=== PATIENT | female | born 1935 | race Caucasian/White ===

== ENCOUNTER → 2016-10-20 | Outpatient (CLI) | payer MEDICARE, BC | LOC: MC.RAD 12:56 | DX: Z12.31 Encounter for screening mammogram for malignant neoplasm of breast (principal); D24.2 Benign neoplasm of left breast; D24.1 Benign neoplasm of right breast; Z85.3 Personal history of malignant neoplasm of breast ==

== ENCOUNTER → 2017-10-21 | Outpatient (CLI) | payer MEDICARE, BC | LOC: MC.RAD 12:55 | DX: Z12.31 Encounter for screening mammogram for malignant neoplasm of breast (principal); Z85.3 Personal history of malignant neoplasm of breast; Z98.890 Other specified postprocedural states ==

== ENCOUNTER → 2018-12-01 | Outpatient (CLI) | payer MEDICARE, BC | LOC: MC.RAD 13:45 | DX: Z12.31 Encounter for screening mammogram for malignant neoplasm of breast (principal); C50.512 Malignant neoplasm of lower-outer quadrant of left female breast; Z98.890 Other specified postprocedural states ==

== ENCOUNTER → 2019-12-14 | Outpatient (CLI) | payer MEDICARE, BC | LOC: MC.RAD 12-03 08:30 | DX: Z12.31 Encounter for screening mammogram for malignant neoplasm of breast (principal); C50.512 Malignant neoplasm of lower-outer quadrant of left female breast; Z90.13 Acquired absence of bilateral breasts and nipples ==

== ENCOUNTER → 2021-01-02 | Outpatient (CLI) | payer MEDICARE, BC ==
[~2021-01-02] MED LIST: EUTHYROX88 MCG PO; LIPITOR 10MG10 MG PO; OMNICEF 300MG300 MG PO; TOPROL XL100 MG PO; VASOTEC20 MG PO; VITAMIN D 50,1.25 MG PO
== END ==
LOC: MC.RAD 12-15 10:15
DX: Z12.31 Encounter for screening mammogram for malignant neoplasm of breast (principal); C50.512 Malignant neoplasm of lower-outer quadrant of left female breast

== ENCOUNTER 2021-06-09 12:52 | Emergency (ER) | payer MEDICARE, BC ==
[~2021-06-09] VITALS: Ht 160 cm; Wt 59.1 kg
[2021-06-09 13:04] VITALS: TEMP 97.7
[2021-06-09 13:44] LABS: BASO % 0.1 % (0.0-2.0); EOS % 0.1 % (0-4.0); GRAN % 86.1 % (42.2-75.2); HEMATOCRIT 43.8 % (37.0-47.0); HEMOGLOBIN 14.6 g/dl (12.5-16.0); LYMPH # 0.5 (1.2-3.4); LYMPH % 5.3 % (20.0-51.0); MEAN CELL VOLUME 87 fl (80.0-100.0); MEAN CORPUSCULAR HEMOGLOBIN 29 pg (27.0-31.0); MEAN CORPUSCULAR HGB CONC 33 g/dl (33.0-37.0); MEAN PLATELET VOLUME 10.6 fl (7.4-10.4); MONO # 0.7 (0.1-0.6); MONO % 7.9 % (1.7-9.3); PLATELET COUNT 165 K/mm3 (130-400); RED BLOOD COUNT 5.03 M/mm3 (4.10-5.30); REDCELL DISTRIBUTION WIDTH-CV 13.9 % (11.5-14.5)
[2021-06-09 14:09] LABS: ALBUMIN 3.8 gm/dL (3.5-5.0); BILIRUBIN,TOTAL 1.2 mg/dL (0.0-1.0); C-REACTIVE PROTEIN 4.2 mg/dL (0.0-0.9); CALCIUM 8.6 mg/dL (8.4-10.2); CREATININE, serum 0.76 (0.52-1.25); POTASSIUM 3.6 mmol/L (3.4-5.0); TOTAL PROTEIN 6.9 gm/dL (6.4-8.2)
[2021-06-09 14:58] LABS: MUCOUS Present /lpf; PH 6 (5-8); SQUAMOUS EPITHELIAL 0-2 /hpf; URINE APPEARANCE Hazy; URINE BACTERIA Rare /hpf; URINE BILIRUBIN Negative (NEGATIVE); URINE BLOOD 3+ (NEGATIVE); URINE COLOR Yellow; URINE GLUCOSE Negative (NEGATIVE); URINE KETONE Negative (NEGATIVE); URINE LEUKOCYTE ESTERASE Trace (NEGATIVE); URINE NITRATE Negative (NEGATIVE); URINE PROTEIN(semi-quant) 1+ (NEGATIVE); URINE RBC 20-50 /hpf; URINE UROBILINOGEN Negative (NEGATIVE)
[2021-06-09] MEDS ORDERED: OMNICEF 300MG300 MG PO (15:10)
[2021-06-09] MEDS ORDERED: VASOTEC20 MG PO (15:15)
[2021-06-09] MEDS ORDERED: TOPROL XL100 MG PO (15:15)
[2021-06-09] MEDS ORDERED: VITAMIN D 50,1.25 MG PO (15:15)
[2021-06-09] MEDS ORDERED: LIPITOR 10MG10 MG PO (15:16)
[2021-06-09] MEDS ORDERED: EUTHYROX88 MCG PO (15:16)
[2021-06-09 15:17] VITALS: BP 112/83; PULSE 78
[2021-06-11 10:37] LABS: COLLECTION METHOD CATHETER
== END 2021-06-09 15:20 | disposition home or self-care (01) ==
LOC: COL.ER 12:52
PROVIDERS: Family Medicine
DX: S40.012A Contusion of left shoulder, initial encounter (principal); I10 Essential (primary) hypertension; I48.91 Unspecified atrial fibrillation; E86.0 Dehydration; R82.81 Pyuria; W19.XXXA Unspecified fall, initial encounter; Y92.009 Unspecified place in unspecified non-institutional (private) residence as the place of occurrence of the external cause
CPT/HCPCS: J2405; J7030